=== PATIENT | male | born 1975 | race Caucasian/White ===

== ENCOUNTER 2025-03-27 10:57 | Day surgery (SDC) | payer OTHER ==
[~2025-03-27] VITALS: Ht 185.4 cm; Wt 113.3 kg
[~2025-03-27 10:57] MED LIST: ATOR1TAB19 PO
[2025-03-27] MEDS ORDERED: LIDOCAINE 2% 100 MG/5 ML SDV (FOR ANES.) As Ordered ONE (11:26)
[2025-03-27 12:08] VITALS: TEMP 97.6
[2025-03-27 12:25] VITALS: BP 131/80; O2SAT 96
== END 2025-03-27 12:29 | disposition home or self-care (01) ==
LOC: M OPP 10:57
PROVIDERS: ATTEND Surgery
DX: Z12.11 Encounter for screening for malignant neoplasm of colon (principal); D12.6 Benign neoplasm of colon, unspecified; K57.30 Diverticulosis of large intestine without perforation or abscess without bleeding; K21.00 Gastro-esophageal reflux disease with esophagitis, without bleeding; R10.13 Epigastric pain; Z79.899 Other long term (current) drug therapy